=== PATIENT | female | born 1960 | race Caucasian/White ===

== ENCOUNTER 2023-05-17 10:12 | Day surgery (SDC) | payer BC ==
[~2023-05-17 10:12] MED LIST: Metoclopramide 10 MG/2 ML SDV IV PRN; Sodium Chloride 0.9% 1,000 ML IV SCH
[2023-05-17] MEDS ORDERED: Propofol 200 MG/20 ML SDV ONE (13:30)
[2023-05-17 13:46] VITALS: BP 110/75; PULSE 69
== END 2023-05-17 14:20 | disposition home or self-care (01) ==
LOC: LB.SDS 10:12
PROVIDERS: ATTEND Surgery
DX: K63.89 Other specified diseases of intestine (principal); K57.31 Diverticulosis of large intestine without perforation or abscess with bleeding; K52.9 Noninfective gastroenteritis and colitis, unspecified; I10 Essential (primary) hypertension; D64.9 Anemia, unspecified; Z88.0 Allergy status to penicillin; Z88.2 Allergy status to sulfonamides; Z88.1 Allergy status to other antibiotic agents; Z88.8 Allergy status to other drugs, medicaments and biological substances
CPT/HCPCS: 88305; J2704; J7030

== ENCOUNTER 2023-11-03 08:12 | Emergency (ER) | payer MEDICARE ==
[2023-11-03 08:54] VITALS: BP 144/100; PULSE 83
[2023-11-03 09:01] LABS: APPEARANCE,URINE TURBID (CLEAR); BILIRUBIN,URINE NEGATIVE (NEGATIVE); COLOR,URINE RED; GLUCOSE,URINE NEGATIVE (NEGATIVE); KETONES,URINE NEGATIVE (NEGATIVE); NITRITE,URINE NEGATIVE (NEGATIVE); PH,URINE 7.5 (5.0-8.0); PROTEIN,URINE 100 mg/dL (NEGATIVE)
[2023-11-03 09:03] LABS: LEUKOCYTE ESTERASE,URINE LARGE (NEGATIVE); OCCULT BLOOD,URINE LARGE (NEGATIVE)
[2023-11-03 09:04] LABS: RBC,URINE >100 /HPF; SQUAMOUS EPITHELIAL CELLS,UR FEW /HPF
== END 2023-11-03 09:20 | disposition home or self-care (01) ==
LOC: LB.ED 08:12
DX: N39.0 Urinary tract infection, site not specified (principal); R31.0 Gross hematuria; I10 Essential (primary) hypertension; Z88.8 Allergy status to other drugs, medicaments and biological substances; Z88.1 Allergy status to other antibiotic agents; Z88.0 Allergy status to penicillin; Z88.2 Allergy status to sulfonamides; Z79.899 Other long term (current) drug therapy
CPT/HCPCS: 81001; 87086; 99283

== ENCOUNTER 2024-12-01 02:06 | Emergency (ER) | payer MEDICARE ==
[2024-12-01 03:40] LABS: APPEARANCE,URINE SLIGHTLY CLOUDY (CLEAR); COLOR,URINE OTHER
[2024-12-01 03:41] LABS: BILIRUBIN,URINE NEGATIVE (NEGATIVE); GLUCOSE,URINE NEGATIVE (NEGATIVE); KETONES,URINE NEGATIVE (NEGATIVE); PROTEIN,URINE >=300 mg/dL (NEGATIVE)
[2024-12-01 03:42] LABS: NITRITE,URINE NEGATIVE (NEGATIVE); OCCULT BLOOD,URINE LARGE (NEGATIVE); UROBILINOGEN,URINE 0.2 E.U./dL (0.2-1.0)
[2024-12-01 03:43] LABS: RBC,URINE >100 /HPF; WBC,URINE 75-100 /HPF
[2024-12-01 03:44] LABS: BACTERIA,URINE FEW /HPF; SQUAMOUS EPITHELIAL CELLS,UR MODERATE /HPF
[2024-12-01] MEDS ORDERED: Ciprofloxacin 500 MG Tab ONE ×2 (04:00)
[2024-12-01 04:02] VITALS: BP 149/93; PULSE 74
[2024-12-01 09:32] LABS: LEUKOCYTE ESTERASE,URINE TRACE (NEGATIVE)
== END 2024-12-01 04:15 | disposition home or self-care (01) ==
LOC: LB.ED 02:06
DX: N30.91 Cystitis, unspecified with hematuria (principal); I10 Essential (primary) hypertension; Z79.899 Other long term (current) drug therapy; Z88.1 Allergy status to other antibiotic agents; Z88.0 Allergy status to penicillin; Z88.8 Allergy status to other drugs, medicaments and biological substances
CPT/HCPCS: 81001; 87086; 99284; A9270-GY